=== PATIENT | male | born 1980 ===

== ENCOUNTER 2016-12-04 09:47 | Emergency (ER) | payer OTHER ==
[2016-12-04 10:49] VITALS: BP 146/65; PULSE 97; RESP 17; TEMP 98.1; O2SAT 99
--- NOTE | 2016-12-04 11:19 | ED PDOC ---
Lower Extremity Pain/Injury Time Seen by Provider: 12/04/16 10:33 Chief Complaint (Nursing): Lower Extremity Problem/Injury Chief Complaint (Provider): Right knee and calf pain for a few days, no trauma History Per: Patient History/Exam Limitations: no limitations Onset/Duration Of Symptoms: Days Current Symptoms Are (Timing): Still Present Severity: Severe Pain Scale Rating Of: 8 Additional Complaint(s): Pt states he has had some pain in the knee in the past but not in the calf. PT states the calf pain is more severe when he is walking. PT has been taking motrin at home and it has not been helping. Denies chest pain. Past Medical History Reviewed: Historical Data, Nursing Documentation, Vital Signs Vital Signs: Last Vital Signs Temp 98.1 F 12/04/16 10:43 Pulse 97 H 12/04/16 10:43 Resp 17 12/04/16 10:43 BP 146/65 12/04/16 10:43 Pulse Ox 99 12/04/16 10:43 - Medical History PMH: No Chronic Diseases Denies: Chronic Kidney Disease - Surgical History Surgical History: No Surg Hx - Family History Family History: States: No Known Family Hx - Living Arrangements Living Arrangements: With Family - Social History Current smoker - smoking cessation education provided: No Alcohol: None Drugs: Denies - Immunization History Hx Tetanus Toxoid Vaccination: No Hx Influenza Vaccination: No Hx Pneumococcal Vaccination: No - Home Medications Home Medications: Ambulatory Orders Medication Instructions Recorded Ibuprofen [Motrin Tab] 800 mg PO Q6H PRN #20 tab 12/04/16 oxyCODONE/Acetaminophen [Percocet 1 ea PO Q6H PRN #15 tab 12/04/16 5/325 mg Tab] - Allergies Allergies/Adverse Reactions: Allergies Allergy/AdvReac Type Severity Reaction Status Date / Time No Known Allergies Allergy Verified 12/04/16 10:49 Review of Systems ROS Statement: Except As Marked, All Systems Reviewed And Found Negative Musculoskeletal: Positive for: Leg Pain Physical Exam - Reviewed Nursing Documentation Reviewed: Yes Vital Signs Reviewed: Yes - Physical Exam Appears: Positive for: Well, Non-toxic, No Acute Distress Head Exam: Positive for: ATRAUMATIC, NORMAL INSPECTION, NORMOCEPHALIC Skin: Positive for: Normal Color, Warm, DRY Eye Exam: Positive for: Normal appearance ENT: Positive for: Normal ENT Inspection Neck: Positive for: Normal, Painless ROM Respiratory: Negative for: Accessory Muscle Use, Respiratory Distress Back: Positive for: Normal Inspection Extremity: Positive for: Normal ROM, Tenderness (Knee, generalized), Calf Tenderness, Swelling (Knee and calf ). Negative for: Deformity Neurologic/Psych: Positive for: Alert, Oriented - ECG O2 Sat by Pulse Oximetry: 99 Medical Decision Making Medical Decision Making: (-) DVT X-ray without acute fracture or dislocation Disposition - Clinical Impression Clinical Impression: Right leg pain - Patient ED Disposition Is Patient to be Admitted: No Counseled Patient/Family Regarding: Diagnosis, Need For Followup, Rx Given - Disposition Referrals: Prashanth Blank MD [Staff Provider] - Disposition: Routine/Home Disposition Time: 13:54 Condition: GOOD Prescriptions: Ibuprofen [Motrin Tab] 800 mg PO Q6H PRN #20 tab PRN Reason: Pain oxyCODONE/Acetaminophen [Percocet 5/325 mg Tab] 1 ea PO Q6H PRN #15 tab PRN Reason: Pain, Severe (8-10) Instructions: Knee Pain (ED) Forms: [employer] (German)
[2016-12-04] MEDS ORDERED: Oxycodone/Acetaminophen 5/325 mg Tab PO STA (11:52)
[2016-12-04] MEDS ORDERED: Oxycodone/Acetaminophen 5/325 mg Tab ONE (11:55)
--- NOTE | 2016-12-04 13:16 | RAD ---
PROCEDURE: Right Knee Radiographs. HISTORY: calf and knee pain, no trauma COMPARISON: None. FINDINGS: BONES: There is no acute displaced fracture or bone destruction. Bone alignment and mineralization are normal. JOINTS: Normal. No osteoarthritis. JOINT EFFUSION: There is a small suprapatellar joint effusion. OTHER FINDINGS: None. IMPRESSION: No acute fracture or dislocation. Small suprapatellar joint effusion.
--- NOTE | 2016-12-04 13:30 | US ---
PROCEDURE: Right lower extremity venous duplex Doppler. HISTORY: calf and knee pain, no trauma COMPARISON: None available. TECHNIQUE: Common femoral, superficial femoral, popliteal and posterior tibial veins were evaluated. Flow was assessed with color Doppler, compressibility, assessment of phasic flow and augmentation response. FINDINGS: COMMON FEMORAL VEIN: Normal direction of flow, compressibility and augmentation response. SUPERFICIAL FEMORAL VEIN: Normal direction of flow, compressibility and augmentation response. POPLITEAL VEIN: Normal direction of flow, compressibility and augmentation response. POSTERIOR TIBIAL VEIN: Normal direction of flow, compressibility and augmentation response. OTHER FINDINGS: None. IMPRESSION: No evidence of deep venous thrombosis in the right lower extremity.
== END 2016-12-04 14:10 | disposition home or self-care (01) ==
LOC: H.ER 09:47
DX: M79.604 Pain in right leg (principal)
CPT/HCPCS: 73560; 93971; 96372; 99283; J1885

== ENCOUNTER 2017-02-19 10:21 | Emergency (ER) | payer SELFPAY ==
[2017-02-19 10:28] VITALS: BP 135/72; PULSE 79; TEMP 97; O2SAT 98
[2017-02-19 10:29] VITALS: BMI 26.6
--- NOTE | 2017-02-19 11:56 | ED PDOC ---
HPI: General Adult Time Seen by Provider: 02/19/17 11:10 Chief Complaint (Nursing): Lower Extremity Problem/Injury History Per: Patient Additional Complaint(s): Pt. states for the past 3 days he's had atraumatic R foot pain. States he had similar symptoms in the R knee and had blood work done but is uncertain of results but does a copy of the blood work. Denies trauma, fever, numbness, tingling, rash. Blood work on 12/30/2016 shows a uric acid level of 9.3. Past Medical History Reviewed: Historical Data, Nursing Documentation, Vital Signs Vital Signs: Last Vital Signs Temp 97 F L 02/19/17 10:27 Pulse 79 02/19/17 10:27 Resp BP 135/72 02/19/17 10:27 Pulse Ox 98 02/19/17 11:55 - Medical History PMH: Denies: Chronic Kidney Disease - Family History Family History: States: No Known Family Hx - Immunization History Hx Tetanus Toxoid Vaccination: No Hx Influenza Vaccination: No Hx Pneumococcal Vaccination: No - Home Medications Home Medications: Ambulatory Orders Medication Instructions Recorded Ibuprofen [Motrin Tab] 800 mg PO Q6H PRN #20 tab 12/04/16 oxyCODONE/Acetaminophen [Percocet 1 ea PO Q6H PRN #15 tab 12/04/16 5/325 mg Tab] Indomethacin [Indocin] 50 mg PO Q8 PRN #30 cap 02/19/17 - Allergies Allergies/Adverse Reactions: Allergies Allergy/AdvReac Type Severity Reaction Status Date / Time No Known Allergies Allergy Verified 12/04/16 10:49 Review of Systems ROS Statement: Except As Marked, All Systems Reviewed And Found Negative Musculoskeletal: Positive for: Foot Pain Physical Exam - Physical Exam Appears: Positive for: Well, Non-toxic, No Acute Distress Skin: Positive for: Normal Color, Warm. Negative for: Rash Pulses-Dorsalis Pedis (L): 2+ Pulses-Dorsalis Pedis (R): 2+ Extremity: Positive for: Normal ROM, Other (R dorsal foot with mild swelling, warmth, erythema, without break in skin integrity or lesions). Negative for: Calf Tenderness (b/l) - ECG O2 Sat by Pulse Oximetry: 98 - Progress ED Course And Treament: Toradol 30mg IM ordered. Disposition - Clinical Impression Clinical Impression: Gout - Patient ED Disposition Is Patient to be Admitted: No - Disposition Referrals: [facility] [Outside] Podiatry Clinic [Outside] Disposition: Routine/Home Disposition Time: 11:30 Condition: STABLE Additional Instructions: Follow up with podiatry clinic for further evaluation. Prescriptions: Indomethacin [Indocin] 50 mg PO Q8 PRN #30 cap PRN Reason: pain Instructions: Gout (ED) Forms: [employer] (Luxem[place]ish) Print Language: CONGOLESE
== END 2017-02-19 12:19 | disposition home or self-care (01) ==
LOC: H.ER 10:21
DX: M10.061 Idiopathic gout, right knee (principal)
CPT/HCPCS: 96372; 99283; J1885